=== PATIENT | female | born 1990 | race Caucasian/White ===

== ENCOUNTER 2019-07-19 15:18 | Inpatient (IN) | payer OTHER ==
[~2019-07-19] VITALS: Ht 162.6 cm; Wt 75.3 kg
[2019-08-05] MEDS ORDERED: PRENATAL CAPLE1 EAC1 PO (10:59)
== END 2019-08-07 09:39 | disposition home or self-care (01) | DRG 807 ==
LOC: LDR 08-05 05:09 → OB/GYN 08-05 05:25 → LDR 08-05 08:16 → OB/GYN 08-05 22:05
PROVIDERS: ADMIT Obstetrics & Gynecology Maternal & Fetal Medicine
PROC: 10E0XZZ Delivery of Products of Conception, External Approach (ICD-10-PCS; principal; 2019-08-05)
PROC: 0HQ9XZZ Repair Perineum Skin, External Approach (ICD-10-PCS; 2019-08-05)
PROC: 10907ZC Drainage of Amniotic Fluid, Therapeutic from Products of Conception, Via Natural or Artificial Opening (ICD-10-PCS; 2019-08-05)
PROC: 3E033VJ Introduction of Other Hormone into Peripheral Vein, Percutaneous Approach (ICD-10-PCS; 2019-08-05)
PROC: 4A1HXCZ Monitoring of Products of Conception, Cardiac Rate, External Approach (ICD-10-PCS; 2019-08-05)
DX: O70.0 First degree perineal laceration during delivery (principal); Z37.0 Single live birth; Z3A.39 39 weeks gestation of pregnancy

== ENCOUNTER 2024-06-29 03:39 | Emergency (ER) | payer OTHER ==
[~2024-06-29] VITALS: Ht 162.6 cm; Wt 67.1 kg
[~2024-06-29 03:39] MED LIST: PRENATAL CAPLE1 EAC1 PO
[2024-06-29] MEDS ORDERED: 0.9 % SODIUM CHLORIDE 1,000 ML IV STA (05:20)
[2024-06-29 05:51] LABS: HEMOGLOBIN 14.2 g/dL (12.0-15.00); MEAN CELL VOLUME 89.5 fL (80.00-100.00); MEAN CORPUSCULAR HEMOGLOBIN 31.7 pg (27.00-32.0); MEAN CORPUSCULAR HGB CONC 35.4 g/dl (32.0-36.0); PLATELET COUNT 242 K/uL (150-450); RED BLOOD COUNT 4.47 M/uL (4.00-6.00)
[2024-06-29 06:14] LABS: INR 0.98; PARTIAL THROMBOPLASTIN TIME 22.9 SECONDS (22.0-34.0); PROTHROMBIN TIME 10.7 SECONDS (9.0-11.5)
[2024-06-29 06:43] LABS: CALCIUM 9.2 mg/dL (8.5-10.1); CREATININE SERUM 0.67 mg/dL (0.55-1.02); GFR 100.16; POTASSIUM 3.93 mEq/L (3.5-5.1)
== END 2024-06-29 10:22 | disposition home or self-care (01) ==
LOC: ER 03:42
DX: O20.0 Threatened abortion (principal)

== ENCOUNTER 2024-07-16 08:06 | Day surgery (SDC) | payer OTHER ==
[2024-07-15 14:46] LABS: HEMATOCRIT 38.9 % (36.0-45.00); HEMOGLOBIN 13.5 g/dL (12.0-15.00); MEAN CELL VOLUME 88.7 fL (80.00-100.00); MEAN CORPUSCULAR HEMOGLOBIN 30.8 pg (27.00-32.0); MEAN CORPUSCULAR HGB CONC 34.7 g/dl (32.0-36.0); PLATELET COUNT 262 K/uL (150-450); RED BLOOD COUNT 4.38 M/uL (4.00-6.00); RED CELL DISTRIBUTION WIDTH 12.6 % (11.5-14.5)
[2024-07-15 15:06] LABS: ALBUMIN 3.9 gm/dL (3.4-5.0); BILIRUBIN TOTAL 0.5 mg/dL (0.3-1.2); CALCIUM 9.4 mg/dL (8.5-10.1); CREATININE SERUM 0.57 mg/dL (0.55-1.02); GFR 120.7; GLOBULINA 3.5 G/DL (2.4-3.5); POTASSIUM 3.93 mEq/L (3.5-5.1); TOTAL PROTEIN 7.4 gm/dL (6.4-8.2)
[2024-07-15 15:37] LABS: INR 0.96; PARTIAL THROMBOPLASTIN TIME 26.3 SECONDS (22.0-34.0); PROTHROMBIN TIME 10.5 SECONDS (9.0-11.5)
[2024-07-16] MEDS ORDERED: POVIDONE-IODINE 118 ML BOTT TOP ONE ×2 (16:01→16:30)
[2024-07-16] MEDS ORDERED: CEFOXITIN SODIUM 2,000 MG VIAL IV ONE (17:15)
[2024-07-16] MEDS ORDERED: PROMETHAZINE HCL 50 MG/ML AMPUL IM ONE (17:45)
[2024-07-16] MEDS ORDERED: MORPHINE SULFATE 4 MG/ML VIAL IV PRN (17:45)
== END 2024-07-16 22:00 | disposition home or self-care (01) ==
LOC: CIR.AMB 08:06
PROVIDERS: ATTEND Obstetrics & Gynecology
DX: O02.1 Missed abortion (principal)